=== PATIENT | male | born 1975 | race Hispanic/Latino ===

== ENCOUNTER 2022-07-08 02:28 | Emergency (ER) | payer OTHER, SELFPAY ==
[2022-07-08] MEDS ORDERED: Ibuprofen 200 MG TAB ONE (03:12)
== END 2022-07-08 04:40 ==
LOC: CSHERS 02:28
DX: M54.50 Low back pain, unspecified (principal); V89.2XXA Person injured in unspecified motor-vehicle accident, traffic, initial encounter
CPT/HCPCS: 36415; 99283